=== PATIENT | female | born 2000 | race Caucasian/White ===

== ENCOUNTER 2021-09-29 11:34 | Outpatient (CLI) | payer OTHER | END 2021-09-29 11:35 | disposition home or self-care (01) | LOC: CTENTCT 11:34 | PROVIDERS: ATTEND Specialist | DX: J32.8 Other chronic sinusitis (principal) | CPT/HCPCS: 70486 ==

== ENCOUNTER 2023-09-15 10:31 | Outpatient (CLI) | payer OTHER | END 2023-09-15 10:32 | disposition home or self-care (01) | LOC: BICULT 10:31 | PROVIDERS: ATTEND Nurse Practitioner Women's Health | DX: N63.14 Unspecified lump in the right breast, lower inner quadrant (principal) ==